=== PATIENT | female | born 1945 | race Caucasian/White ===

== ENCOUNTER 2022-01-04 10:48 | Emergency (ER) | payer OTHER, MEDICARE ==
[2022-01-04 11:46] VITALS: BMI 16.9
[2022-01-04] MEDS ORDERED: ACETAMINOPHEN 325 MG TABLET (FP) PO ONE (12:49)
[2022-01-04] MEDS ORDERED: ACETAMINOPHEN 325 MG TABLET (FP) ONE (13:08)
[2022-01-04] MEDS ORDERED: LIDOCAINE 5% TOPICAL PATCH TP ONE (14:22)
[2022-01-04 16:58] VITALS: BP 120/75; PULSE 87; TEMP 98
[2022-01-04] MEDS ORDERED: LIDOCAINE PATCH REMOVAL MC ONE (22:00)
== END 2022-01-04 16:58 | disposition home or self-care (01) ==
LOC: JER 10:48
DX: M25.511 Pain in right shoulder (principal)
CPT/HCPCS: 73030-TC-RT-FY; 99283-25

== ENCOUNTER 2022-01-21 13:46 | Inpatient (IN) | payer OTHER, MEDICARE ==
[2022-01-21 16:01] LABS: BASO % 0.5 % (0-2.0); EOS % 1.1 % (0-4.5); HEMATOCRIT 31.6 % (32.4-45.2); HEMOGLOBIN 9.8 GM/dL (10.7-15.3); LYMPH % 4.3 % (8-40); MCH 25.2 pg (25.7-33.7); MCHC 30.9 g/dl (32.0-36.0); MEAN CELL VOLUME 81.6 fl (80-96); MEAN PLT VOLUME 8.9 fl (7.5-11.1); MONO % 5.4 % (3.8-10.2); NEUT % 88.7 % (42.8-82.8); PLATELET COUNT 366 10^3/uL (134-434); RBC 3.87 M/mm3 (3.60-5.2); RDW 15.4 % (11.6-15.6); WHITE BLOOD COUNT 12.2 K/mm3 (4.0-10.0)
[2022-01-21 16:24] LABS: EPI CELLS 17 /uL (0-25.1); HYALINE CASTS 1 /uL (0-3.1); PH,URINE 6.5 (5.0-8.0); URINE APPEARANCE CLOUDY; URINE BACTERIA 8678 /uL (0-1359); URINE BILIRUBIN NEGATIVE (NEGATIVE); URINE COLOR YELLOW; URINE GLUCOSE (UA) NEGATIVE (NEGATIVE); URINE KETONE NEGATIVE (NEGATIVE); URINE LEUK ESTERASE 3+ (NEGATIVE); URINE NITRITE NEGATIVE (NEGATIVE); URINE PROTEIN TRACE (NEGATIVE); URINE RBC 45 /uL (0-23.9); URINE WBC 531 /uL (0-25.8)
[2022-01-21 16:29] LABS: ALBUMIN 2.8 g/dl (3.4-5.0); BLOOD UREA NITROGEN 26.6 mg/dL (7-18); MAGNESIUM 2.2 mg/dL (1.8-2.4)
[2022-01-21 16:31] LABS: ACTIVATED PTT 30.4 SECONDS (25.2-36.5)
[2022-01-21 16:32] LABS: CREATININE 1.2 mg/dL (0.55-1.3); PHOSPHOROUS 2.8 mg/dL (2.5-4.9)
[2022-01-21 16:33] LABS: BILIRUBIN,TOTAL 0.3 mg/dL (0.2-1); TOT PROT 6.8 g/dl (6.4-8.2)
[2022-01-21] MEDS ORDERED: CEFTRIAXONE 1,000 MG in DEXTROSE 5%-WATER - 50 ML IVPB ONE (16:42)
[2022-01-21 16:43] LABS: INR 1.15 (0.83-1.09); PROTHROMBIN TIME (PATIENT) 13.2 SEC (9.7-13.0)
[2022-01-21] MEDS ORDERED: CEFTRIAXONE 1 GM/50 ML BAG ONE (16:46)
[2022-01-21] MEDS ORDERED: MIRTAZAPINE 15 MG TABLET (FP) ONE (21:05)
[2022-01-21] MEDS ORDERED: ASCORBIC ACID 500 MG TABLET (FP) ONE (21:05)
[2022-01-21] MEDS ORDERED: GABAPENTIN 100 MG CAPSULE ONE (21:05)
[2022-01-21] MEDS ORDERED: FERROUS SO4 325 MG TABLET (FP) ONE (21:05)
[2022-01-21] MEDS: ASCORBIC ACID 500 MG TABLET (FP) PO SCH (21:12)
[2022-01-21] MEDS: GABAPENTIN 100 MG CAPSULE PO SCH (21:12)
[2022-01-21] MEDS: FERROUS SO4 325 MG TABLET (FP) PO SCH (21:12)
[2022-01-21] MEDS: MIRTAZAPINE 15 MG TABLET (FP) PO SCH (21:12)
[2022-01-22 08:44] LABS: HEMATOCRIT 29.1 % (32.4-45.2); HEMOGLOBIN 9.2 GM/dL (10.7-15.3); MCH 25.5 pg (25.7-33.7); MCHC 31.5 g/dl (32.0-36.0); MEAN CELL VOLUME 80.8 fl (80-96); MEAN PLT VOLUME 8.7 fl (7.5-11.1); PLATELET COUNT 313 10^3/uL (134-434); RDW 15.1 % (11.6-15.6); WHITE BLOOD COUNT 11.5 K/mm3 (4.0-10.0)
[2022-01-22] MEDS ORDERED: cefTRIAXone SODIUM 1 GM VIAL ONE (09:25)
[2022-01-22] MEDS ORDERED: DEXTROSE 5%-WATER - 50 ML IVPB ONE (09:26)
[2022-01-22] MEDS: DEXTROSE 5%-NORMAL SALINE 1,000 ML IV SCH ×2 (09:29→16:51)
[2022-01-22] MEDS: GABAPENTIN 100 MG CAPSULE PO SCH ×2 (09:30→22:08)
[2022-01-22] MEDS: FERROUS SO4 325 MG TABLET (FP) PO SCH ×2 (09:30→22:08)
[2022-01-22] MEDS: ENOXAPARIN NA (PORCINE) 30 MG/0.3 ML DISP.SYRIN SQ SCH (09:30)
[2022-01-22] MEDS: CEFTRIAXONE 1 GM in DEXTROSE 5%-WATER - 50 ML IVPB SCH (09:30)
[2022-01-22] MEDS: ASCORBIC ACID 500 MG TABLET (FP) PO SCH ×2 (09:31→22:07)
[2022-01-22] MEDS ORDERED: MIRTAZAPINE 15 MG TABLET (FP) PO SCH (10:00)
[2022-01-22 11:57] LABS: ANISOCYTOSIS 0; MACROCYTOSIS 0; PLATELET ESTIMATE NORMAL
[2022-01-22] MEDS: MIRTAZAPINE 15 MG TABLET (FP) PO SCH (22:07)
[2022-01-23] MEDS: GABAPENTIN 100 MG CAPSULE PO SCH ×2 (06:21→21:45)
[2022-01-23] MEDS ORDERED: cefTRIAXone SODIUM 1 GM VIAL ONE (08:58)
[2022-01-23] MEDS ORDERED: DEXTROSE 5%-WATER - 50 ML IVPB ONE (08:58)
[2022-01-23] MEDS: ENOXAPARIN NA (PORCINE) 30 MG/0.3 ML DISP.SYRIN SQ SCH (09:03)
[2022-01-23] MEDS: FERROUS SO4 325 MG TABLET (FP) PO SCH ×2 (09:04→21:46)
[2022-01-23] MEDS: ASCORBIC ACID 500 MG TABLET (FP) PO SCH ×2 (09:04→21:45)
[2022-01-23] MEDS: CEFTRIAXONE 1 GM in DEXTROSE 5%-WATER - 50 ML IVPB SCH (09:04)
[2022-01-23 09:33] LABS: ALBUMIN 2.4 g/dl (3.4-5.0); BILIRUBIN,TOTAL 0.5 mg/dL (0.2-1); CALCIUM 8.9 mg/dL (8.5-10.1); CREATININE 0.9 mg/dL (0.55-1.3); TOT PROT 6.4 g/dl (6.4-8.2)
[2022-01-23 10:31] LABS: HEMATOCRIT 32.1 % (32.4-45.2); HEMOGLOBIN 10.1 GM/dL (10.7-15.3); MCH 25.3 pg (25.7-33.7); MCHC 31.3 g/dl (32.0-36.0); MEAN CELL VOLUME 80.7 fl (80-96); MEAN PLT VOLUME 9.2 fl (7.5-11.1); PLATELET COUNT 495 10^3/uL (134-434); RBC 3.98 M/mm3 (3.60-5.2); RDW 15.5 % (11.6-15.6); WHITE BLOOD COUNT 21.3 K/mm3 (4.0-10.0)
[2022-01-23 11:38] LABS: ANISOCYTOSIS 0; HELMET CELLS 0; HOWELL-JOLLY BODIES 0; MACROCYTOSIS 0; OVALOCYTE 0; ROULEAU 0; SICKELED CELLS 0; TARGET CELLS 0; TEAR DROP CELLS 0; TOXIC GRANULATION 0
[2022-01-23 16:07] VITALS: BMI 15.7
[2022-01-23] MEDS: DEXTROSE 5%-NORMAL SALINE 1,000 ML IV SCH (20:04)
[2022-01-23] MEDS: MIRTAZAPINE 15 MG TABLET (FP) PO SCH (21:46)
[2022-01-24] MEDS: GABAPENTIN 100 MG CAPSULE PO SCH ×2 (07:32→21:51)
[2022-01-24 08:36] LABS: HEMATOCRIT 32.4 % (32.4-45.2); HEMOGLOBIN 10.1 GM/dL (10.7-15.3); MCH 25.3 pg (25.7-33.7); MCHC 31.2 g/dl (32.0-36.0); MEAN CELL VOLUME 81.2 fl (80-96); MEAN PLT VOLUME 9.3 fl (7.5-11.1); PLATELET COUNT 334 10^3/uL (134-434); RBC 3.99 M/mm3 (3.60-5.2); RDW 15.2 % (11.6-15.6); WHITE BLOOD COUNT 12.9 K/mm3 (4.0-10.0)
[2022-01-24 08:47] LABS: CHLORIDE 105 mmol/L (98-107); SODIUM 142 mmol/L (136-145)
[2022-01-24 08:50] LABS: CALCIUM 8.9 mg/dL (8.5-10.1)
[2022-01-24 08:51] LABS: ALBUMIN 2.4 g/dl (3.4-5.0); BLOOD UREA NITROGEN 9.2 mg/dL (7-18); CO2 27 mmol/L (21-32); GLUCOSE,RANDOM 100 mg/dL (74-106)
[2022-01-24 08:54] LABS: CREATININE 0.8 mg/dL (0.55-1.3); SGOT/AST 25 U/L (15-37); SGPT/ALT 25 U/L (13-61)
[2022-01-24 08:56] LABS: BILIRUBIN,TOTAL 0.4 mg/dL (0.2-1); TOT PROT 6.4 g/dl (6.4-8.2)
[2022-01-24 08:57] LABS: ALK PHOS 110 U/L (45-117)
[2022-01-24 09:05] LABS: ANION GAP 10 MMOL/L (8-16)
[2022-01-24] MEDS ORDERED: POTASSIUM CHLORIDE TABS 20 MEQ TABLET.ER (FP) PO ONE (09:27)
[2022-01-24] MEDS ORDERED: cefTRIAXone SODIUM 1 GM VIAL ONE (09:33)
[2022-01-24] MEDS ORDERED: DEXTROSE 5%-WATER - 50 ML IVPB ONE (09:33)
[2022-01-24] MEDS: KCL 10 MEQ IVPB 10 MEQ/100 ML INFUS.BAG IVPB SCH ×3 (09:37→12:06)
[2022-01-24] MEDS: FERROUS SO4 325 MG TABLET (FP) PO SCH ×2 (09:39→21:51)
[2022-01-24] MEDS: ENOXAPARIN NA (PORCINE) 30 MG/0.3 ML DISP.SYRIN SQ SCH (09:40)
[2022-01-24] MEDS: ASCORBIC ACID 500 MG TABLET (FP) PO SCH ×2 (09:41→21:51)
[2022-01-24] MEDS: CEFTRIAXONE 1 GM in DEXTROSE 5%-WATER - 50 ML IVPB SCH (09:41)
[2022-01-24 10:20] LABS: ANISOCYTOSIS 0; HELMET CELLS 0; HOWELL-JOLLY BODIES 0; MACROCYTOSIS 0; OVALOCYTE 0; ROULEAU 0; SICKELED CELLS 0; TARGET CELLS 0; TEAR DROP CELLS 0; TOXIC GRANULATION 0
[2022-01-24] MEDS: ACETAMINOPHEN 325 MG TABLET (FP) PO PRN ×2 (14:52→21:50)
[2022-01-24 14:54] LABS: MAGNESIUM 1.8 mg/dL (1.8-2.4)
[2022-01-24 14:58] LABS: PHOSPHOROUS 2.4 mg/dL (2.5-4.9)
[2022-01-24] MEDS: MIRTAZAPINE 15 MG TABLET (FP) PO SCH (21:51)
[2022-01-25] MEDS: GABAPENTIN 100 MG CAPSULE PO SCH ×2 (06:24→21:24)
[2022-01-25] MEDS: ACETAMINOPHEN 325 MG TABLET (FP) PO PRN ×3 (06:26→18:34)
[2022-01-25 09:01] LABS: HEMATOCRIT 28.1 % (32.4-45.2); HEMOGLOBIN 8.9 GM/dL (10.7-15.3); MCH 25.5 pg (25.7-33.7); MCHC 31.8 g/dl (32.0-36.0); MEAN CELL VOLUME 80.4 fl (80-96); MEAN PLT VOLUME 8.9 fl (7.5-11.1); PLATELET COUNT 335 10^3/uL (134-434); RBC 3.49 M/mm3 (3.60-5.2); RDW 15.4 % (11.6-15.6); WHITE BLOOD COUNT 15.5 K/mm3 (4.0-10.0)
[2022-01-25 09:33] LABS: CALCIUM 9.1 mg/dL (8.5-10.1)
[2022-01-25 09:34] LABS: BLOOD UREA NITROGEN 11.2 mg/dL (7-18)
[2022-01-25 09:37] LABS: CREATININE 0.7 mg/dL (0.55-1.3)
[2022-01-25 10:39] LABS: ANISOCYTOSIS 0; HELMET CELLS 0; HOWELL-JOLLY BODIES 0; MACROCYTOSIS 0; OVALOCYTE 0; ROULEAU 0; SICKELED CELLS 0; TARGET CELLS 0; TEAR DROP CELLS 0; TOXIC GRANULATION 0
[2022-01-25] MEDS: ENOXAPARIN NA (PORCINE) 30 MG/0.3 ML DISP.SYRIN SQ SCH (11:01)
[2022-01-25] MEDS: FERROUS SO4 325 MG TABLET (FP) PO SCH ×2 (11:02→21:24)
[2022-01-25] MEDS: CEFTRIAXONE 1 GM in DEXTROSE 5%-WATER - 50 ML IVPB SCH (11:02)
[2022-01-25] MEDS: ASCORBIC ACID 500 MG TABLET (FP) PO SCH ×2 (11:02→21:24)
[2022-01-25 12:06] LABS: MAGNESIUM 1.7 mg/dL (1.8-2.4)
[2022-01-25 12:10] LABS: PHOSPHOROUS 2.6 mg/dL (2.5-4.9)
[2022-01-25 12:15] LABS: N-TERMINAL BNP 1710.6 pg/ml (5-450)
[2022-01-25] MEDS ORDERED: FUROSEMIDE 40 MG/4 ML INJECTABLE VIAL IVPUSH ONE ×2 (14:37→17:00)
[2022-01-25] MEDS: MIRTAZAPINE 15 MG TABLET (FP) PO SCH (21:25)
[2022-01-26] MEDS: ACETAMINOPHEN 325 MG TABLET (FP) PO PRN ×3 (04:54→23:27)
[2022-01-26] MEDS: GABAPENTIN 100 MG CAPSULE PO SCH ×2 (06:32→23:26)
[2022-01-26] MEDS: FERROUS SO4 325 MG TABLET (FP) PO SCH ×2 (09:20→23:26)
[2022-01-26] MEDS: ENOXAPARIN NA (PORCINE) 30 MG/0.3 ML DISP.SYRIN SQ SCH (09:20)
[2022-01-26] MEDS: CEFTRIAXONE 1 GM in DEXTROSE 5%-WATER - 50 ML IVPB SCH (09:20)
[2022-01-26] MEDS: ASCORBIC ACID 500 MG TABLET (FP) PO SCH ×2 (09:21→23:27)
[2022-01-26] MEDS: MIRTAZAPINE 15 MG TABLET (FP) PO SCH (23:26)
[2022-01-26 23:36] VITALS: RESP 20
[2022-01-27] MEDS: GABAPENTIN 100 MG CAPSULE PO SCH (06:07)
[2022-01-27 06:28] VITALS: BP 118/63; PULSE 100; TEMP 97.7
[2022-01-27] MEDS: ENOXAPARIN NA (PORCINE) 30 MG/0.3 ML DISP.SYRIN SQ SCH (09:28)
[2022-01-27] MEDS: ASCORBIC ACID 500 MG TABLET (FP) PO SCH (09:28)
[2022-01-27] MEDS: CEFTRIAXONE 1 GM in DEXTROSE 5%-WATER - 50 ML IVPB SCH (09:28)
[2022-01-27] MEDS: FERROUS SO4 325 MG TABLET (FP) PO SCH (09:28)
[2022-01-27] MEDS: ACETAMINOPHEN 325 MG TABLET (FP) PO PRN ×2 (11:59→17:56)
[2022-01-27 14:21] LABS: HEMATOCRIT 31.4 % (32.4-45.2); HEMOGLOBIN 9.8 GM/dL (10.7-15.3); MCHC 31.2 g/dl (32.0-36.0); MEAN CELL VOLUME 80.1 fl (80-96); MEAN PLT VOLUME 8.9 fl (7.5-11.1); PLATELET COUNT 458 10^3/uL (134-434); RBC 3.92 M/mm3 (3.60-5.2); RDW 15.6 % (11.6-15.6); WHITE BLOOD COUNT 18.9 K/mm3 (4.0-10.0)
[2022-01-27 14:51] LABS: CALCIUM 9.1 mg/dL (8.5-10.1)
[2022-01-27 14:52] LABS: BLOOD UREA NITROGEN 21.4 mg/dL (7-18)
[2022-01-27 15:09] LABS: ANISOCYTOSIS 2+; MACROCYTOSIS 0; OVALOCYTE 2+
[2022-01-27] MEDS ORDERED: CEFUROXIME AXETIL 500 MG TABLET PO SCH (22:00)
== END 2022-01-27 18:50 | DRG 689 ==
LOC: JER 13:46 → JERBED 17:07 → J8W 22:14
PROVIDERS: ADMIT Internal Medicine; ATTEND Internal Medicine
DX: N39.0 Urinary tract infection, site not specified (principal); E43 Unspecified severe protein-calorie malnutrition; Z68.1 Body mass index [BMI] 19.9 or less, adult; B96.20 Unspecified Escherichia coli [E. coli] as the cause of diseases classified elsewhere; I10 Essential (primary) hypertension; E78.5 Hyperlipidemia, unspecified; D50.9 Iron deficiency anemia, unspecified; F32.A Depression, unspecified; I27.20 Pulmonary hypertension, unspecified; R62.7 Adult failure to thrive; M79.2 Neuralgia and neuritis, unspecified; E87.6 Hypokalemia
CPT/HCPCS: 0241U-QW; 36415; 71045-TC-FY; 80048; 80053; 81003; 83735; 83880; 84100; 84443; 85025; 85610; 85730; 86850; 86900; 86901; 87086; 87186; 93005; 93010; 93306-TC; 97116-GP; 97161-GP; 99285-25; C9803-CS; U0003; U0005

== ENCOUNTER 2022-01-28 21:41 | Inpatient (IN) | payer OTHER, MEDICARE ==
[2022-01-28] MEDS ORDERED: PANTOPRAZOLE SODIUM 40 MG VIAL IVPUSH ONE (22:55)
[2022-01-28] MEDS ORDERED: PANTOPRAZOLE SODIUM 40 MG/100 ML BAG IVPB ONE (23:01)
[2022-01-29] MEDS ORDERED: GABAPENTIN 100 MG CAPSULE PO ONE (00:23)
[2022-01-29 00:38] LABS: BASO % 0.3 % (0-2.0); HEMATOCRIT 34.1 % (32.4-45.2); HEMOGLOBIN 10.5 GM/dL (10.7-15.3); LYMPH % 4.6 % (8-40); MCHC 30.7 g/dl (32.0-36.0); MEAN CELL VOLUME 81.4 fl (80-96); MEAN PLT VOLUME 8.7 fl (7.5-11.1); MONO % 4.7 % (3.8-10.2); NEUT % 89.4 % (42.8-82.8); PLATELET COUNT 529 10^3/uL (134-434); RBC 4.19 M/mm3 (3.60-5.2); RDW 15.9 % (11.6-15.6); WHITE BLOOD COUNT 17.7 K/mm3 (4.0-10.0)
[2022-01-29 00:59] LABS: ALBUMIN 2.6 g/dl (3.4-5.0); BLOOD UREA NITROGEN 20.2 mg/dL (7-18); CALCIUM 9.9 mg/dL (8.5-10.1)
[2022-01-29 01:03] LABS: BILIRUBIN,TOTAL 0.4 mg/dL (0.2-1); TOT PROT 6.6 g/dl (6.4-8.2)
[2022-01-29] MEDS ORDERED: GABAPENTIN 100 MG CAPSULE ONE (01:18)
[2022-01-29] MEDS ORDERED: PATIENT'S OWN MEDICATION (NON-FORMULARY) (Mirtazapine [Mirtazapine] 7.5 MG Tablet) PO SCH (05:00)
[2022-01-29] MEDS ORDERED: ACETAMINOPHEN 1000 MG/100 ML BAG IVPB ONE (05:00)
[2022-01-29] MEDS: DEXTROSE 5%-NORMAL SALINE 1,000 ML IV SCH (05:27)
[2022-01-29] MEDS: GABAPENTIN 100 MG CAPSULE PO SCH ×3 (06:36→21:24)
[2022-01-29 07:36] LABS: HEMATOCRIT 33.2 % (32.4-45.2); HEMOGLOBIN 9.9 GM/dL (10.7-15.3); MCH 25.3 pg (25.7-33.7); MCHC 29.9 g/dl (32.0-36.0); MEAN CELL VOLUME 84.6 fl (80-96); MEAN PLT VOLUME 8.7 fl (7.5-11.1); PLATELET COUNT 346 10^3/uL (134-434); RBC 3.93 M/mm3 (3.60-5.2); RDW 16.4 % (11.6-15.6)
[2022-01-29 07:44] LABS: BLOOD UREA NITROGEN 19.6 mg/dL (7-18); CALCIUM 9.4 mg/dL (8.5-10.1)
[2022-01-29 07:47] LABS: CREATININE 0.9 mg/dL (0.55-1.3); PHOSPHOROUS 3.4 mg/dL (2.5-4.9)
[2022-01-29 09:06] LABS: ANISOCYTOSIS 0; HELMET CELLS 0; HOWELL-JOLLY BODIES 0; MACROCYTOSIS 0; OVALOCYTE 0; ROULEAU 0; SICKELED CELLS 0; TARGET CELLS 0; TEAR DROP CELLS 0; TOXIC GRANULATION 0
[2022-01-29] MEDS ORDERED: PATIENT'S OWN MEDICATION (NON-FORMULARY) (Calcium Carbonate/Vitamin D3 [Calcium 500-Vit D3 PO SCH (10:00)
[2022-01-29] MEDS: ASCORBIC ACID 500 MG TABLET (FP) PO SCH ×2 (10:08→21:24)
[2022-01-29] MEDS: CALCIUM 500MG/VIT-D 200 UNITS COMBO TABLET (FP) PO SCH (10:08)
[2022-01-29] MEDS: CEFUROXIME AXETIL 500 MG TABLET PO SCH ×2 (13:42→21:24)
[2022-01-29] MEDS: POLYETHYLENE GLYCOL (HEALTHYLAX) 3350 17 GM PACKET PO SCH (13:42)
[2022-01-29] MEDS: ACETAMINOPHEN 325 MG TABLET (FP) PO PRN ×2 (13:44→21:31)
[2022-01-29 14:19] VITALS: BMI 13.9
[2022-01-29 17:48] LABS: HEMATOCRIT 30.7 % (32.4-45.2); HEMOGLOBIN 9.7 GM/dL (10.7-15.3); MCH 25.4 pg (25.7-33.7); MCHC 31.4 g/dl (32.0-36.0); MEAN CELL VOLUME 80.7 fl (80-96); MEAN PLT VOLUME 8.4 fl (7.5-11.1); PLATELET COUNT 421 10^3/uL (134-434); RBC 3.81 M/mm3 (3.60-5.2); RDW 15.9 % (11.6-15.6); WHITE BLOOD COUNT 17.4 K/mm3 (4.0-10.0)
[2022-01-29] MEDS: MIRTAZAPINE 15 MG TABLET (FP) PO SCH (21:24)
[2022-01-30] MEDS: GABAPENTIN 100 MG CAPSULE PO SCH ×2 (06:40→21:45)
[2022-01-30] MEDS: ASCORBIC ACID 500 MG TABLET (FP) PO SCH ×2 (09:52→21:45)
[2022-01-30] MEDS: POLYETHYLENE GLYCOL (HEALTHYLAX) 3350 17 GM PACKET PO SCH (09:52)
[2022-01-30] MEDS: CEFUROXIME AXETIL 500 MG TABLET PO SCH (09:52)
[2022-01-30] MEDS: CALCIUM 500MG/VIT-D 200 UNITS COMBO TABLET (FP) PO SCH (09:52)
[2022-01-30] MEDS: ACETAMINOPHEN 325 MG TABLET (FP) PO PRN ×2 (11:12→21:45)
[2022-01-30 11:42] LABS: HEMATOCRIT 36.8 % (32.4-45.2); HEMOGLOBIN 11.1 GM/dL (10.7-15.3); MCH 24.7 pg (25.7-33.7); MCHC 30.2 g/dl (32.0-36.0); MEAN CELL VOLUME 81.9 fl (80-96); MEAN PLT VOLUME 9.1 fl (7.5-11.1); PLATELET COUNT 511 10^3/uL (134-434); RDW 16.3 % (11.6-15.6)
[2022-01-30 12:11] LABS: ANISOCYTOSIS 0; HELMET CELLS 0; HOWELL-JOLLY BODIES 0; MACROCYTOSIS 0; OVALOCYTE 0; ROULEAU 0; SICKELED CELLS 0; TARGET CELLS 0; TEAR DROP CELLS 0; TOXIC GRANULATION 0
[2022-01-30 13:23] LABS: BLOOD UREA NITROGEN 19.8 mg/dL (7-18); CALCIUM 9.7 mg/dL (8.5-10.1)
[2022-01-30 13:27] LABS: CREATININE 0.9 mg/dL (0.55-1.3)
[2022-01-30] MEDS ORDERED: IRON SUCROSE INJECTION 200 MG in SODIUM CHLORIDE 90 ML IVPB ONE (13:58)
[2022-01-30] MEDS: DEXTROSE 5%-NORMAL SALINE 1,000 ML IV SCH (15:15)
[2022-01-30] MEDS: MIRTAZAPINE 15 MG TABLET (FP) PO SCH (21:45)
[2022-01-30 21:51] LABS: EPI CELLS 17 /uL (0-25.1); HYALINE CASTS 2 /uL (0-3.1); URINE APPEARANCE CLOUDY; URINE BACTERIA 74 /uL (0-1359); URINE BILIRUBIN NEGATIVE (NEGATIVE); URINE COLOR YELLOW; URINE GLUCOSE (UA) NEGATIVE (NEGATIVE); URINE KETONE NEGATIVE (NEGATIVE); URINE LEUK ESTERASE 2+ (NEGATIVE); URINE NITRITE NEGATIVE (NEGATIVE); URINE PROTEIN TRACE (NEGATIVE); URINE RBC 7 /uL (0-23.9); URINE UROBILINOGEN 0.2 mg/dL (0.2-1.0); URINE WBC 84 /uL (0-25.8)
[2022-01-30 23:09] LABS: URINE CRYSTALS MANY /hpf
[2022-01-31] MEDS: DEXTROSE 5%-NORMAL SALINE 1,000 ML IV SCH ×2 (03:57→18:09)
[2022-01-31] MEDS: GABAPENTIN 100 MG CAPSULE PO SCH ×2 (06:34→21:31)
[2022-01-31] MEDS: ACETAMINOPHEN 325 MG TABLET (FP) PO PRN ×2 (06:55→21:32)
[2022-01-31] MEDS: CALCIUM 500MG/VIT-D 200 UNITS COMBO TABLET (FP) PO SCH (09:41)
[2022-01-31] MEDS: POLYETHYLENE GLYCOL (HEALTHYLAX) 3350 17 GM PACKET PO SCH (09:41)
[2022-01-31] MEDS: ASCORBIC ACID 500 MG TABLET (FP) PO SCH ×2 (09:41→21:32)
[2022-01-31] MEDS ORDERED: PIPERACILLIN/TAZOB 4.5 GM 4.5 GM in DEXTROSE 5%-WATER 100 ML IVPB SCH (12:00)
[2022-01-31] MEDS: PIPERACILLIN/TAZOB 3.375 GM 3.375 GM in DEXTROSE 5%-WATER - 50 ML IVPB SCH ×2 (13:23→18:08)
[2022-01-31] MEDS: MIRTAZAPINE 15 MG TABLET (FP) PO SCH (21:32)
[2022-02-01] MEDS: PIPERACILLIN/TAZOB 3.375 GM 3.375 GM in DEXTROSE 5%-WATER - 50 ML IVPB SCH ×3 (02:31→17:56)
[2022-02-01] MEDS: GABAPENTIN 100 MG CAPSULE PO SCH ×2 (06:16→21:16)
[2022-02-01] MEDS: DEXTROSE 5%-NORMAL SALINE 1,000 ML IV SCH (10:15)
[2022-02-01] MEDS: POLYETHYLENE GLYCOL (HEALTHYLAX) 3350 17 GM PACKET PO SCH (10:15)
[2022-02-01] MEDS: CALCIUM 500MG/VIT-D 200 UNITS COMBO TABLET (FP) PO SCH (10:15)
[2022-02-01] MEDS: ASCORBIC ACID 500 MG TABLET (FP) PO SCH ×2 (10:15→21:16)
[2022-02-01] MEDS: ACETAMINOPHEN 325 MG TABLET (FP) PO PRN ×2 (10:54→21:27)
[2022-02-01 16:14] LABS: BASO % 0.2 % (0-2.0); EOS % 1.5 % (0-4.5); HEMATOCRIT 25.4 % (32.4-45.2); HEMOGLOBIN 7.7 GM/dL (10.7-15.3); MCHC 30.5 g/dl (32.0-36.0); MEAN PLT VOLUME 8.8 fl (7.5-11.1); MONO % 5.1 % (3.8-10.2); NEUT % 89.2 % (42.8-82.8); PLATELET COUNT 307 10^3/uL (134-434); RDW 16.1 % (11.6-15.6); WHITE BLOOD COUNT 11.4 K/mm3 (4.0-10.0)
[2022-02-01 16:21] LABS: INR 1.26 (0.83-1.09); PROTHROMBIN TIME (PATIENT) 14.5 SEC (9.7-13.0)
[2022-02-01 16:43] LABS: CALCIUM 9.1 mg/dL (8.5-10.1)
[2022-02-01 16:44] LABS: BLOOD UREA NITROGEN 16.8 mg/dL (7-18)
[2022-02-01 16:47] LABS: CREATININE 0.8 mg/dL (0.55-1.3)
[2022-02-01] MEDS: MIRTAZAPINE 15 MG TABLET (FP) PO SCH (21:16)
[2022-02-02] MEDS: PIPERACILLIN/TAZOB 3.375 GM 3.375 GM in DEXTROSE 5%-WATER - 50 ML IVPB SCH ×3 (02:00→17:10)
[2022-02-02] MEDS: DEXTROSE 5%-NORMAL SALINE 1,000 ML IV SCH ×3 (02:00→12:44)
[2022-02-02] MEDS ORDERED: ACETAMINOPHEN 1000 MG/100 ML BAG IVPB ONE (05:49)
[2022-02-02] MEDS: GABAPENTIN 100 MG CAPSULE PO SCH ×2 (06:57→21:15)
[2022-02-02] MEDS: POLYETHYLENE GLYCOL (HEALTHYLAX) 3350 17 GM PACKET PO SCH (12:43)
[2022-02-02] MEDS: ACETAMINOPHEN 325 MG TABLET (FP) PO PRN ×2 (12:43→17:52)
[2022-02-02] MEDS: ASCORBIC ACID 500 MG TABLET (FP) PO SCH ×2 (12:43→21:15)
[2022-02-02] MEDS: CALCIUM 500MG/VIT-D 200 UNITS COMBO TABLET (FP) PO SCH (12:43)
[2022-02-02] MEDS: guaiFENesin/D-METHORPHAN HB 10 ML UNIT-DOSE CUPS PO PRN ×2 (12:43→17:52)
[2022-02-02] MEDS: MIRTAZAPINE 15 MG TABLET (FP) PO SCH (21:15)
[2022-02-03] MEDS: PIPERACILLIN/TAZOB 3.375 GM 3.375 GM in DEXTROSE 5%-WATER - 50 ML IVPB SCH ×3 (01:36→18:13)
[2022-02-03] MEDS: DEXTROSE 5%-NORMAL SALINE 1,000 ML IV SCH ×2 (03:46→18:16)
[2022-02-03] MEDS: GABAPENTIN 100 MG CAPSULE PO SCH ×2 (06:07→21:29)
[2022-02-03] MEDS: CALCIUM 500MG/VIT-D 200 UNITS COMBO TABLET (FP) PO SCH (10:18)
[2022-02-03] MEDS: ASCORBIC ACID 500 MG TABLET (FP) PO SCH ×2 (10:19→21:28)
[2022-02-03] MEDS: POLYETHYLENE GLYCOL (HEALTHYLAX) 3350 17 GM PACKET PO SCH (10:19)
[2022-02-03] MEDS: ACETAMINOPHEN 325 MG TABLET (FP) PO PRN ×2 (13:47→22:19)
[2022-02-03 14:25] LABS: HEMATOCRIT 31.7 % (32.4-45.2); MCHC 31.6 g/dl (32.0-36.0); MEAN CELL VOLUME 82.4 fl (80-96); MEAN PLT VOLUME 8.3 fl (7.5-11.1); PLATELET COUNT 431 10^3/uL (134-434); RBC 3.84 M/mm3 (3.60-5.2); RDW 16.4 % (11.6-15.6); WHITE BLOOD COUNT 17.5 K/mm3 (4.0-10.0)
[2022-02-03 14:45] LABS: CALCIUM 8.8 mg/dL (8.5-10.1)
[2022-02-03 14:46] LABS: BLOOD UREA NITROGEN 9.7 mg/dL (7-18)
[2022-02-03 14:49] LABS: CREATININE 0.8 mg/dL (0.55-1.3)
[2022-02-03 15:22] LABS: PLATELET ESTIMATE NORMAL
[2022-02-03] MEDS: MIRTAZAPINE 15 MG TABLET (FP) PO SCH (21:28)
[2022-02-04] MEDS: PIPERACILLIN/TAZOB 3.375 GM 3.375 GM in DEXTROSE 5%-WATER - 50 ML IVPB SCH ×3 (02:19→16:59)
[2022-02-04] MEDS: GABAPENTIN 100 MG CAPSULE PO SCH ×2 (06:10→21:04)
[2022-02-04] MEDS: ASCORBIC ACID 500 MG TABLET (FP) PO SCH ×2 (09:17→21:04)
[2022-02-04] MEDS: CALCIUM 500MG/VIT-D 200 UNITS COMBO TABLET (FP) PO SCH (09:17)
[2022-02-04] MEDS: ACETAMINOPHEN 325 MG TABLET (FP) PO PRN ×2 (09:17→21:04)
[2022-02-04 12:27] LABS: HEMOGLOBIN 9.2 GM/dL (10.7-15.3); MCH 25.7 pg (25.7-33.7); MCHC 31.6 g/dl (32.0-36.0); MEAN CELL VOLUME 81.4 fl (80-96); MEAN PLT VOLUME 8.5 fl (7.5-11.1); PLATELET COUNT 408 10^3/uL (134-434); RBC 3.56 M/mm3 (3.60-5.2); RDW 16.3 % (11.6-15.6); WHITE BLOOD COUNT 20.8 K/mm3 (4.0-10.0)
[2022-02-04 12:49] LABS: BLOOD UREA NITROGEN 9.8 mg/dL (7-18); CALCIUM 9.1 mg/dL (8.5-10.1)
[2022-02-04 12:53] LABS: CREATININE 0.9 mg/dL (0.55-1.3)
[2022-02-04 13:02] LABS: ANISOCYTOSIS 3+; MACROCYTOSIS 0
[2022-02-04] MEDS: AMINO ACIDS 4.25%/D5W 1,000 ML IV SCH (16:48)
[2022-02-04] MEDS: MULTIVIT INJ. ADULT COMBO WITH VIT K 1 COMBO 10 ML VIAL IV SCH (16:48)
[2022-02-04] MEDS: POLYETHYLENE GLYCOL (HEALTHYLAX) 3350 17 GM PACKET PO SCH (16:49)
[2022-02-04] MEDS: MIRTAZAPINE 15 MG TABLET (FP) PO SCH (21:04)
[2022-02-05] MEDS: PIPERACILLIN/TAZOB 3.375 GM 3.375 GM in DEXTROSE 5%-WATER - 50 ML IVPB SCH ×4 (01:59→19:15)
[2022-02-05] MEDS: GABAPENTIN 100 MG CAPSULE PO SCH ×2 (06:03→21:14)
[2022-02-05] MEDS: ACETAMINOPHEN 325 MG TABLET (FP) PO PRN ×2 (08:56→18:57)
[2022-02-05] MEDS: POTASSIUM CHLORIDE TABS 20 MEQ TABLET.ER (FP) PO SCH (09:55)
[2022-02-05] MEDS: CALCIUM 500MG/VIT-D 200 UNITS COMBO TABLET (FP) PO SCH (09:55)
[2022-02-05] MEDS: ASCORBIC ACID 500 MG TABLET (FP) PO SCH ×2 (09:55→21:14)
[2022-02-05] MEDS: POLYETHYLENE GLYCOL (HEALTHYLAX) 3350 17 GM PACKET PO SCH (09:55)
[2022-02-05] MEDS: AMINO ACIDS 4.25%/D5W 1,000 ML IV SCH (10:30)
[2022-02-05 11:19] LABS: HEMATOCRIT 29.7 % (32.4-45.2); HEMOGLOBIN 9.2 GM/dL (10.7-15.3); MCH 25.6 pg (25.7-33.7); MCHC 31.1 g/dl (32.0-36.0); MEAN CELL VOLUME 82.5 fl (80-96); MEAN PLT VOLUME 8.3 fl (7.5-11.1); PLATELET COUNT 403 10^3/uL (134-434); RBC 3.61 M/mm3 (3.60-5.2); RDW 16.8 % (11.6-15.6); WHITE BLOOD COUNT 18.7 K/mm3 (4.0-10.0)
[2022-02-05 11:37] LABS: CHLORIDE 97 mmol/L (98-107); SODIUM 140 mmol/L (136-145)
[2022-02-05 11:38] LABS: CALCIUM 8.3 mg/dL (8.5-10.1); CO2 30 mmol/L (21-32)
[2022-02-05 11:39] LABS: BLOOD UREA NITROGEN 13.9 mg/dL (7-18); GLUCOSE,RANDOM 327 mg/dL (74-106)
[2022-02-05 11:45] LABS: ANION GAP 13 MMOL/L (8-16)
[2022-02-05] MEDS ORDERED: POTASSIUM CHLORIDE TABS 10 MEQ TABLET.ER (FP) PO SCH (13:15)
[2022-02-05 13:24] LABS: ANISOCYTOSIS 1+; MACROCYTOSIS 0; PLATELET ESTIMATE NORMAL
[2022-02-05] MEDS: KCL 10 MEQ IVPB 10 MEQ/100 ML INFUS.BAG IVPB SCH ×5 (13:45→15:36)
[2022-02-05] MEDS: POTASSIUM CHLORIDE 20 MEQ in AMINO ACIDS 4.25%/D5W 1,000 ML IV SCH (14:41)
[2022-02-05] MEDS: MULTIVIT INJ. ADULT COMBO WITH VIT K 1 COMBO 10 ML VIAL IV SCH (14:42)
[2022-02-05] MEDS: INSULIN SLIDING SCALE (NOVOLOG) 1 VIAL SQ SCH (16:49)
[2022-02-05] MEDS: MIRTAZAPINE 15 MG TABLET (FP) PO SCH (21:14)
[2022-02-05] MEDS ORDERED: POTASSIUM CHLORIDE ORAL LIQUID 20 MEQ/15 ML PO ONE (22:10)
[2022-02-06] MEDS: PIPERACILLIN/TAZOB 3.375 GM 3.375 GM in DEXTROSE 5%-WATER - 50 ML IVPB SCH ×3 (01:40→17:09)
[2022-02-06] MEDS: INSULIN SLIDING SCALE (NOVOLOG) 1 VIAL SQ SCH ×3 (06:02→16:42)
[2022-02-06] MEDS: GABAPENTIN 100 MG CAPSULE PO SCH ×2 (06:27→21:50)
[2022-02-06 09:27] LABS: HEMATOCRIT 29.5 % (32.4-45.2); MCH 25.2 pg (25.7-33.7); MCHC 30.7 g/dl (32.0-36.0); MEAN CELL VOLUME 82.2 fl (80-96); MEAN PLT VOLUME 8.5 fl (7.5-11.1); PLATELET COUNT 359 10^3/uL (134-434); RBC 3.58 M/mm3 (3.60-5.2); RDW 16.5 % (11.6-15.6); WHITE BLOOD COUNT 14.5 K/mm3 (4.0-10.0)
[2022-02-06 09:50] LABS: BLOOD UREA NITROGEN 14.4 mg/dL (7-18)
[2022-02-06 09:54] LABS: CREATININE 0.9 mg/dL (0.55-1.3)
[2022-02-06 09:55] LABS: MAGNESIUM 1.9 mg/dL (1.8-2.4)
[2022-02-06 10:05] LABS: CALCIUM 9.6 mg/dL (8.5-10.1)
[2022-02-06] MEDS: POTASSIUM CHLORIDE TABS 20 MEQ TABLET.ER (FP) PO SCH (10:13)
[2022-02-06] MEDS: CALCIUM 500MG/VIT-D 200 UNITS COMBO TABLET (FP) PO SCH (10:21)
[2022-02-06] MEDS: ACETAMINOPHEN 325 MG TABLET (FP) PO PRN ×2 (10:21→21:51)
[2022-02-06] MEDS: ASCORBIC ACID 500 MG TABLET (FP) PO SCH ×2 (10:21→21:51)
[2022-02-06] MEDS: POLYETHYLENE GLYCOL (HEALTHYLAX) 3350 17 GM PACKET PO SCH (10:21)
[2022-02-06 11:36] LABS: ANISOCYTOSIS 0; MACROCYTOSIS 0; OVALOCYTE 1+
[2022-02-06] MEDS: POTASSIUM CHLORIDE 20 MEQ in AMINO ACIDS 4.25%/D5W 1,000 ML IV SCH (18:34)
[2022-02-06] MEDS: MULTIVIT INJ. ADULT COMBO WITH VIT K 1 COMBO 10 ML VIAL IV SCH (18:36)
[2022-02-06] MEDS: MIRTAZAPINE 15 MG TABLET (FP) PO SCH (21:51)
[2022-02-07] MEDS: PIPERACILLIN/TAZOB 3.375 GM 3.375 GM in DEXTROSE 5%-WATER - 50 ML IVPB SCH ×3 (02:03→17:40)
[2022-02-07] MEDS: ACETAMINOPHEN 325 MG TABLET (FP) PO PRN (06:41)
[2022-02-07] MEDS: GABAPENTIN 100 MG CAPSULE PO SCH ×2 (06:42→21:03)
[2022-02-07] MEDS: INSULIN SLIDING SCALE (NOVOLOG) 1 VIAL SQ SCH ×3 (06:42→16:24)
[2022-02-07 10:03] LABS: HEMATOCRIT 28.3 % (32.4-45.2); HEMOGLOBIN 8.9 GM/dL (10.7-15.3); MCH 25.8 pg (25.7-33.7); MCHC 31.5 g/dl (32.0-36.0); MEAN CELL VOLUME 82.2 fl (80-96); MEAN PLT VOLUME 8.3 fl (7.5-11.1); PLATELET COUNT 348 10^3/uL (134-434); RBC 3.45 M/mm3 (3.60-5.2); RDW 16.8 % (11.6-15.6); WHITE BLOOD COUNT 16.3 K/mm3 (4.0-10.0)
[2022-02-07 11:03] LABS: ANISOCYTOSIS 0; HELMET CELLS 0; HOWELL-JOLLY BODIES 0; MACROCYTOSIS 0; OVALOCYTE 0; ROULEAU 0; SICKELED CELLS 0; TARGET CELLS 0; TEAR DROP CELLS 0; TOXIC GRANULATION 0
[2022-02-07] MEDS: POLYETHYLENE GLYCOL (HEALTHYLAX) 3350 17 GM PACKET PO SCH (16:21)
[2022-02-07] MEDS: CALCIUM 500MG/VIT-D 200 UNITS COMBO TABLET (FP) PO SCH (16:22)
[2022-02-07] MEDS: POTASSIUM CHLORIDE ORAL LIQUID 20 MEQ/15 ML PO SCH (16:23)
[2022-02-07] MEDS: ASCORBIC ACID 500 MG TABLET (FP) PO SCH ×2 (16:24→21:03)
[2022-02-07] MEDS: POTASSIUM CHLORIDE 20 MEQ in AMINO ACIDS 4.25%/D5W 1,000 ML IV SCH (18:26)
[2022-02-07] MEDS: MULTIVIT INJ. ADULT COMBO WITH VIT K 1 COMBO 10 ML VIAL IV SCH (18:26)
[2022-02-07] MEDS: ACETAMINOPHEN 650 MG SUPP.RECT PR PRN (18:50)
[2022-02-07] MEDS: MIRTAZAPINE 15 MG TABLET (FP) PO SCH (21:03)
[2022-02-08] MEDS: PIPERACILLIN/TAZOB 3.375 GM 3.375 GM in DEXTROSE 5%-WATER - 50 ML IVPB SCH ×2 (01:51→09:57)
[2022-02-08] MEDS: GABAPENTIN 100 MG CAPSULE PO SCH ×2 (06:18→21:16)
[2022-02-08] MEDS: INSULIN SLIDING SCALE (NOVOLOG) 1 VIAL SQ SCH ×3 (06:19→17:25)
[2022-02-08] MEDS: POTASSIUM CHLORIDE ORAL LIQUID 20 MEQ/15 ML PO SCH (09:58)
[2022-02-08] MEDS: POLYETHYLENE GLYCOL (HEALTHYLAX) 3350 17 GM PACKET PO SCH (09:58)
[2022-02-08] MEDS: ASCORBIC ACID 500 MG TABLET (FP) PO SCH ×2 (09:58→21:16)
[2022-02-08] MEDS: CALCIUM 500MG/VIT-D 200 UNITS COMBO TABLET (FP) PO SCH (09:58)
[2022-02-08] MEDS: MULTIVIT INJ. ADULT COMBO WITH VIT K 1 COMBO 10 ML VIAL IV SCH (16:26)
[2022-02-08] MEDS: POTASSIUM CHLORIDE 20 MEQ in AMINO ACIDS 4.25%/D5W 1,000 ML IV SCH (16:27)
[2022-02-08] MEDS: MIRTAZAPINE 15 MG TABLET (FP) PO SCH (21:16)
[2022-02-09] MEDS: ACETAMINOPHEN 650 MG SUPP.RECT PR PRN ×2 (06:50→17:18)
[2022-02-09] MEDS: INSULIN SLIDING SCALE (NOVOLOG) 1 VIAL SQ SCH ×3 (06:56→17:00)
[2022-02-09] MEDS: GABAPENTIN 100 MG CAPSULE PO SCH ×2 (06:56→21:32)
[2022-02-09] MEDS: CALCIUM 500MG/VIT-D 200 UNITS COMBO TABLET (FP) PO SCH (10:18)
[2022-02-09] MEDS: POLYETHYLENE GLYCOL (HEALTHYLAX) 3350 17 GM PACKET PO SCH (10:18)
[2022-02-09] MEDS: ASCORBIC ACID 500 MG TABLET (FP) PO SCH (10:19)
[2022-02-09] MEDS: POTASSIUM CHLORIDE ORAL LIQUID 20 MEQ/15 ML PO SCH (10:19)
[2022-02-09] MEDS: MIRTAZAPINE 15 MG TABLET (FP) PO SCH (21:33)
[2022-02-10] MEDS: GABAPENTIN 100 MG CAPSULE PO SCH ×2 (06:14→22:12)
[2022-02-10] MEDS: INSULIN SLIDING SCALE (NOVOLOG) 1 VIAL SQ SCH ×3 (06:14→16:59)
[2022-02-10] MEDS: POLYETHYLENE GLYCOL (HEALTHYLAX) 3350 17 GM PACKET PO SCH (10:06)
[2022-02-10] MEDS: ACETAMINOPHEN 650 MG SUPP.RECT PR PRN (10:39)
[2022-02-10] MEDS: MIRTAZAPINE 15 MG TABLET (FP) PO SCH (22:12)
[2022-02-11] MEDS: GABAPENTIN 100 MG CAPSULE PO SCH ×2 (06:17→21:01)
[2022-02-11] MEDS: INSULIN SLIDING SCALE (NOVOLOG) 1 VIAL SQ SCH ×3 (06:17→18:40)
[2022-02-11] MEDS: ACETAMINOPHEN 650 MG SUPP.RECT PR PRN ×2 (08:56→23:17)
[2022-02-11] MEDS: MIRTAZAPINE 15 MG TABLET (FP) PO SCH (21:01)
[2022-02-12] MEDS: ACETAMINOPHEN 650 MG SUPP.RECT PR PRN ×2 (06:19→11:40)
[2022-02-12] MEDS: INSULIN SLIDING SCALE (NOVOLOG) 1 VIAL SQ SCH ×3 (06:20→17:45)
[2022-02-12] MEDS: GABAPENTIN 100 MG CAPSULE PO SCH ×2 (06:20→21:14)
[2022-02-12] MEDS: MIRTAZAPINE 15 MG TABLET (FP) PO SCH (21:14)
[2022-02-13] MEDS: GABAPENTIN 100 MG CAPSULE PO SCH ×2 (06:04→22:37)
[2022-02-13] MEDS: INSULIN SLIDING SCALE (NOVOLOG) 1 VIAL SQ SCH ×3 (06:05→18:18)
[2022-02-13] MEDS: ACETAMINOPHEN 325 MG TABLET (FP) PO PRN (10:27)
[2022-02-13] MEDS: ACETAMINOPHEN 650 MG SUPP.RECT PR PRN (20:25)
[2022-02-13] MEDS: MIRTAZAPINE 15 MG TABLET (FP) PO SCH (22:37)
[2022-02-14] MEDS: GABAPENTIN 100 MG CAPSULE PO SCH (06:01)
[2022-02-14] MEDS: INSULIN SLIDING SCALE (NOVOLOG) 1 VIAL SQ SCH ×3 (06:01→17:13)
[2022-02-14] MEDS: ACETAMINOPHEN 325 MG TABLET (FP) PO PRN ×2 (10:45→18:31)
[2022-02-14 15:35] VITALS: RESP 18
[2022-02-15] MEDS: GABAPENTIN 100 MG CAPSULE PO SCH ×3 (00:39→22:22)
[2022-02-15] MEDS: MIRTAZAPINE 15 MG TABLET (FP) PO SCH ×2 (00:39→22:23)
[2022-02-15] MEDS: ACETAMINOPHEN 325 MG TABLET (FP) PO PRN ×4 (02:03→22:22)
[2022-02-15] MEDS: INSULIN SLIDING SCALE (NOVOLOG) 1 VIAL SQ SCH ×3 (07:08→17:44)
[2022-02-16] MEDS: GABAPENTIN 100 MG CAPSULE PO SCH ×2 (06:38→22:07)
[2022-02-16] MEDS: INSULIN SLIDING SCALE (NOVOLOG) 1 VIAL SQ SCH ×2 (06:38→19:07)
[2022-02-16] MEDS: ACETAMINOPHEN 325 MG TABLET (FP) PO PRN ×2 (10:35→20:35)
[2022-02-16] MEDS: MIRTAZAPINE 15 MG TABLET (FP) PO SCH (22:07)
[2022-02-17] MEDS: GABAPENTIN 100 MG CAPSULE PO SCH ×2 (06:07→21:01)
[2022-02-17] MEDS: INSULIN SLIDING SCALE (NOVOLOG) 1 VIAL SQ SCH ×3 (06:07→17:40)
[2022-02-17] MEDS: ACETAMINOPHEN 325 MG TABLET (FP) PO PRN ×2 (06:09→21:01)
[2022-02-17] MEDS: MIRTAZAPINE 15 MG TABLET (FP) PO SCH (21:01)
[2022-02-18] MEDS: GABAPENTIN 100 MG CAPSULE PO SCH ×2 (06:45→21:11)
[2022-02-18] MEDS: INSULIN SLIDING SCALE (NOVOLOG) 1 VIAL SQ SCH ×3 (06:45→17:48)
[2022-02-18] MEDS: ACETAMINOPHEN 325 MG TABLET (FP) PO PRN (16:55)
[2022-02-18] MEDS: MIRTAZAPINE 15 MG TABLET (FP) PO SCH (21:11)
[2022-02-19] MEDS: GABAPENTIN 100 MG CAPSULE PO SCH ×2 (06:48→21:35)
[2022-02-19] MEDS: INSULIN SLIDING SCALE (NOVOLOG) 1 VIAL SQ SCH ×3 (06:48→18:16)
[2022-02-19] MEDS: MIRTAZAPINE 15 MG TABLET (FP) PO SCH (21:35)
[2022-02-20] MEDS: GABAPENTIN 100 MG CAPSULE PO SCH (06:16)
[2022-02-20] MEDS: INSULIN SLIDING SCALE (NOVOLOG) 1 VIAL SQ SCH ×2 (06:16→13:55)
[2022-02-20 14:15] VITALS: BP 112/54; PULSE 92; TEMP 97.7
== END 2022-02-20 16:19 | disposition hospice, inpatient (51) | DRG 180 ==
LOC: JER 21:41 → JERBED 01-29 00:43 → J7W 01-29 04:06 → J5S 01-29 16:48
PROVIDERS: ADMIT Hospitalist; ATTEND Internal Medicine
PROC: 0BBK3ZX Excision of Right Lung, Percutaneous Approach, Diagnostic (ICD-10-PCS; principal; 2022-02-02)
DX: C34.91 Malignant neoplasm of unspecified part of right bronchus or lung (principal); E43 Unspecified severe protein-calorie malnutrition; G93.41 Metabolic encephalopathy; R64 Cachexia; Z68.1 Body mass index [BMI] 19.9 or less, adult; D64.9 Anemia, unspecified; R62.7 Adult failure to thrive; E78.5 Hyperlipidemia, unspecified; I27.20 Pulmonary hypertension, unspecified; I10 Essential (primary) hypertension; D72.829 Elevated white blood cell count, unspecified
CPT/HCPCS: 36415; 70450-TC; 71045-TC-FY; 71046-TC-FY; 71250-TC; 72170-TC-FY; 74230-TC-FY; 76882-TC-RT-FY; 76942-TC; 78306-TC; 80048; 80053; 81003; 82272; 82607; 82728; 82746; 82962; 83036; 83540; 83550; 83735; 84100; 84484; 85025; 85610; 86480; 86850; 86900; 86901; 87086; 87186; 87305; 87449; 87899; 88305-TC; 88341-TC; 92611-GN; 93005; 93010; 99285-25; A9503; C9803-CS; J1756; U0003; U0005